=== PATIENT | female | born 1990 | race African-American/Black ===

== ENCOUNTER 2017-12-18 08:20 | Emergency (ER) | payer MEDICAID, OTHER ==
[~2017-12-18] VITALS: Ht 160 cm; Wt 86.0 kg
[2017-12-18] MEDS ORDERED: IBUPROFEN 600MG TABLET PO ONE (09:30)
[2017-12-18 11:08] VITALS: BP 120/84
== END 2017-12-18 11:11 | disposition home or self-care (01) ==
LOC: ER 08:25
DX: M79.645 Pain in left finger(s) (principal); R03.0 Elevated blood-pressure reading, without diagnosis of hypertension; Z98.890 Other specified postprocedural states
CPT/HCPCS: 73140; 81025; 99284

== ENCOUNTER 2019-09-02 23:17 | Emergency (ER) | payer OTHER ==
[~2019-09-02] VITALS: Ht 172.7 cm; Wt 90.0 kg
[2019-09-03] MEDS ORDERED: HYDROCODONE/ACETAMINOPHEN 5/325MG TABLET PO ONE (01:45)
[2019-09-03 03:30] VITALS: BP 149/79
== END 2019-09-03 04:00 | disposition home or self-care (01) ==
LOC: ER 23:17
DX: S93.402A Sprain of unspecified ligament of left ankle, initial encounter (principal); Z98.890 Other specified postprocedural states; Z82.49 Family history of ischemic heart disease and other diseases of the circulatory system; X50.1XXA Overexertion from prolonged static or awkward postures, initial encounter; Y93.01 Activity, walking, marching and hiking; Y92.89 Other specified places as the place of occurrence of the external cause; Y99.8 Other external cause status
CPT/HCPCS: 73610; 73630; 99283